=== PATIENT | female | born 1990 | race Caucasian/White ===

== ENCOUNTER 2023-08-18 15:38 | Emergency (ER) | payer SELFPAY ==
--- NOTE | 2023-08-18 15:46 | P.SPORTS_ITS ---
[facility] Past Medical History Medical History (Updated 08/18/23 @ 16:30 by Gladis Diana NP) Down's syndrome PDA (patent ductus arteriosus) hole in ventricle also repaired at 4 months no problems since Family History Family History (Updated 06/27/15 @ 15:02 by DOCTOR UNKNOWN) Father Hypertension Other Diabetes mellitus Social History Social History Smoking status: Never smoker Alcohol intake: never Comments Patient here today for physical sports exam for [facility] [employer]. Visual acuity Right 20/0 Left 20/40 Allergies: Allergies Allergy/AdvReac Type Severity Reaction Status Date / Time No Known Allergies Allergy Verified 08/18/23 15:54 Home Medications: Home Medications Medication Instructions Recorded Confirmed multivit with minerals-iron 18 1 tablet PO DAILY 08/18/23 08/18/23 mg-folic ac 400 mcg-vit K 25 mcg tablet (Adults Multivitamin) Vital Signs: Vital Signs Temperature 36.7 C 08/18/23 15:58 Pulse Rate 67 08/18/23 15:58 Respiratory Rate 20 08/18/23 15:58 Blood Pressure 99/48 L 08/18/23 15:58 Pulse Oximetry 97 08/18/23 15:58 Oxygen Delivery Room Air 08/18/23 15:58 Temperature 36.7 C 08/18/23 15:58 Pulse Rate 67 08/18/23 15:58 Respiratory Rate 20 08/18/23 15:58 Blood Pressure 99/48 L 08/18/23 15:58 Pulse Oximetry 97 08/18/23 15:58 Oxygen Delivery Room Air 08/18/23 15:58 Services Provided Sports Physical Completed: Marilee Huntley was seen today, 08/18/23, for a sports physical for [employer] The paper physical form was completed and scanned into the chart. The original paper physical form was given to the patient for submission to the [employer]. Patient is accompanied by mother who reports child had PDA and hole in ventricle repaired at age 4 months no cardiac problems since. Patient may participate in [facility] [employer] with no restrictions. Discharge Plan Discharge Clinical Impression: Down's syndrome Patient Disposition: Home, Self-Care Condition: Stable Instructions: Antibiotic Form, Normal Exam (ED) Prescriptions: No Action Adults Multivitamin 18 mg iron-400 mcg-25 mcg Tablet 1 tablet PO DAILY Follow-up/Referrals: PHYSICIAN NOT ON STAFF,NONSTAFF [Primary Care Provider] - Time of Disposition: 16:27
[2023-08-18 15:58] VITALS: BP 99/48; PULSE 67; RESP 20; TEMP 36.7; O2SAT 97
== END 2023-08-18 16:28 | disposition home or self-care (01) ==
LOC: EXPTROY 15:42
PROVIDERS: Emergency Provider Registered Nurse
DX: Z02.5 Encounter for examination for participation in sport (principal)
CPT/HCPCS: 99199

== ENCOUNTER 2025-03-20 09:51 | Outpatient (CLI) | payer MEDICARE, SELFPAY ==
--- OUTSIDE RECORDS SUMMARY | 2001-05-03 09:45 | XMS_ITS | Continuity of Care Document ---
Author Organization [facility] Address [address] [place] [address] [address] [place] [address] Phone Care Team Providers Care Metal Trades Instructor Name Role Phone Garces OD, Sagar Unavailable Unavailable Advance Directives Directive Yes / No Effective Date File Name No Information Encounters Encounter Description Practice Location Reason(s) For Visit Diagnoses Date Provider Providers Copied on Encounter [facility], [address] [place] [address] [address], [place], [place], [id number], [place] tel:[phone] [facility] No Information 6-200 1 Garces OD Sagar. [address] , [address], [place], [address], [place]. tel:[phone] Family History Family Member Type Diagnosis Age At Onset No Information Payers Payer name Insurance type Covered constitution party ID Authoriza tion(s) [employer] SOI CI [id number] Social History Type Description Quantity Date Captured Comments Sex Female Smoking Status No Information Chief Complaint And Reason For Visit No Information Reason For Referral Reason For Referral No Information History Of Present Illness Encounter Date Complaint History Of Prese nt Illness No Information Functional Status Date Functional Assessmen t No Information Instructions Date Instruction Additional Infor mation No Information Assessments Type Assessment Date No Information Patient Care Teams Name Effective Dates (start - stop) Status Members No Information
--- NOTE | 2025-04-13 21:34 | WPDSLEEPSTUD ---
Sleep Study Date of Study: 03/20/25 Ordering Provider: Sera Monroe, DAVID Interpreting Physician: Cora Howard MD Sleep Study Type: Split Polysomnogram Weight: 104.326 kg Neck Circumference (inches): 24 [place]: 7 Reason for Sleep Study known obstructive sleep apnea, falls asleep unintentionally Sleep History Marilee Huntley is a 35-year-old woman with unintended episodes of sleep during the day. She frequently awakens from sleep short of breath. She does not mention whether not she has heartburn, belching or coughing at night. She always snores and frequently this is loud enough that others complain. She frequently has breathing problems at night. She occasionally sweats excessively at night. She constantly falls asleep during the day. She occasionally falls asleep involuntarily, constantly falls asleep in the car as a passenger. She does not report loss of muscle tone with strong emotion. She does not feel paralyzed on waking or falling asleep. She does not report vivid dreams upon waking or falling asleep. She rarely has nightmares. She does not report whether or not she can remember her dreams. She occasionally feels sad or depressed. She occasionally feels anxiety. She rarely kicks during the night. She does not report having crawling or aching feelings in her legs. She occasionally feels bothered by pain during the day. She occasionally wakes up with pain in the neck or spine. She reports a weight gain of 20 lb during the last year. She has seasonal allergies and dry eyes. Normal bedtime is 11:00 p.m., falling asleep within 15-30 minutes, waking during the night but she is not certain how often she awakens. She does not report her wake time but she spends 8-10 hours sleeping each night. She maintains the same schedule on weekends. Her sleep questionnaire indicates that she does not take naps during the day. Habits:??Tobacco: never smoker Caffeine: 1-2 sodas per day Alcohol: none Recreational substances: none PMFSH Past Medical History Medical History (Updated 04/13/25 @ 21:53 by Cora Howard MD) Seasonal allergies Hypothyroidism PDA (patent ductus arteriosus) hole in ventricle also repaired at 4 months no problems since Down's syndrome Surgical History Surgical History (Updated 04/13/25 @ 21:43 by Cora Howard MD) History of tonsillectomy Family History Family History (Updated 06/27/15 @ 15:02 by DOCTOR UNKNOWN) Father Hypertension Other Diabetes mellitus Social History Social History Smoking status: Never smoker Alcohol intake: never Medications Home Medications ?Medication ?Instructions ?Recorded ?Confirmed ?Type multivit with minerals-iron 18 1 tablet PO DAILY 08/18/23 08/18/23 History mg-folic ac 400 mcg-vit K 25 mcg tablet (Adults Multivitamin) Sleep Procedure A split night polysomnogram using the TrillTip multi-channel system recorded the standard physiologic parameters including EEG, EOG, submentalis EMG, anterior tibialis EMG, EKG, body position, nasal and oral airflow using nasal pressure sensor and thermistor. Respiratory parameters of chest and abdominal movements were recorded with Respiratory Inductance Plethysmography belts. Oxygen saturation was recorded by pulse oximetry. Video monitoring was also performed. Sleep stages, periodic limb movements, and EEG arousals were scored in 30 second epochs according to the criteria of the AASM Scoring Manual. The Apnea-Hypopnea Index was calculated using CMS guidelines for definition of hypopnea while scoring respiratory events. She did not take a sleep aid at the beginning of the study. The patient's mother spent the night in the sleep lab as well. After the baseline portion the patient met criteria for a titration with an AHI of 180.2 and desaturation to 67%. The patient used a medium ResMed AirTouch F20 fullface mask with heated humidity, initial pressure was CPAP 5 cm, titrated up to CPAP 16 cm. She had significant improvement using CPAP 14 cm spending 21 minutes in bed, all 21 minutes were in non-REM, sleep efficiency was 100% and the residual apnea-hypopnea index was 8.6. The minimum saturation was 88%. The highest pressure during the study was CPAP 16 cm which low gave a residual apnea-hypopnea index of 0 events however sleep efficiency was only 5.4%. She spent 111 minutes at CPAP 16, 1 minute and REM and 5 minutes in non-REM. Sleep Architecture During the diagnostic portion of the study, the total recording time was 335.4 minutes. The total sleep time was 122.5 minutes. Sleep latency was 61.4 minutes. There was no REM on the baseline. Sleep Efficiency was 36.5%. The patient had 24 awakenings for an awakening index of 11.8. Wake after sleep onset time was 151.5 minutes. The patient spent 33.0 minutes, 26.9% of total sleep time in Stage N1. The patient spent 89.5 minutes, 73.1% in Stage N2. The patient spent no time in Stage N3 or in Stage REM sleep. At 04:09:26 AM the patient was placed on PAP treatment and was titrated at pressures ranging from CPAP 5 cm to 16 cm. During the treatment portion of the study, the total recording time was 209.3 minutes. The total sleep time was 64.0 minutes. Sleep latency was 18.0 minutes. REM latency was 82.0 minutes. Sleep Efficiency was 30.6%. Wake after Sleep Onset time was 127.0 minutes. The patient spent 17.5 minutes, 27.3% of total sleep time in Stage N1. The patient spent 40.5 minutes, 63.3% in Stage N2. The patient spent 5.0 minutes, 7.8% in Stage N3. The patient spent 1.0 minutes, 1.6% in Stage REM. Respiratory Analysis During the diagnostic portion of the study, the patient had 282 hypopneas, 86 obstructive apneas, no mixed apneas, and no central apneas for an overall Apnea Hypopnea Index of 180.2 events per hour. The REM Apnea Hypopnea Index was 0 as she had no REM on the baseline. The NREM Apnea Hypopnea Index was 180.2. The patient had a Central Apnea Hypopnea Index of o. There were no Respiratory Effort Related Arousals. The Respiratory Disturbance Index is 180.2 events per hour. There was no evidence of Ryan-Conti Respirations. During the treatment portion of the study, the patient had 28 hypopneas, 2 obstructive apneas, no mixed apneas, and no central apneas for an overall Apnea Hypopnea Index of 28.1 events per hour. The REM Apnea Hypopnea Index was 0, again, she had only one minute of REM. The NREM Apnea Hypopnea Index was 28.6. The patient had a Central Apnea Hypopnea Index of 0. There were no Respiratory Effort Related Arousals. The Respiratory Disturbance Index is 28.1 events per hour. There was no evidence of Ryan-Conti Respirations. Arousals During the diagnostic portion of the study, there were a total of 159 arousals for an arousal index of 77.9. There were 85 respiratory arousals for an index of 41.6. There were no periodic limb movement arousals. There was 1 isolated limb movement arousal for an index of 0.5. There were 74 spontaneous arousals for an index of 36.2. During the treatment portion of the study, there were a total of 49 arousals for an index of 45.9. There were 8 respiratory arousals for an index of 7.5. There were no periodic limb movement arousals. There were no isolated limb movement arousals. There were 41 spontaneous arousals for an index of 38.4. Periodic Limb Movements During the diagnostic portion of the study, the patient had 2 isolated limb movements with an index of 1.0. The patient had no periodic limb movements. The patient had a total of 2 limb movements with a total limb movement index of 1.0. During the treatment portion of the study, the patient had no isolated limb movements.. The patient had no periodic limb movements. Oximetry Data During the diagnostic portion of the study, the patient had an average oxygen saturation of 90% in wake with a minimum oxygen saturation of 70% and a maximum oxygen saturation of 98% The patient had an average oxygen saturation of 81.3% in sleep with a minimum oxygen saturation of 67% and a maximum oxygen saturation of 95%. The patient had 382 oxygen desaturations resulting in an Oxygen Desaturation Index of 187.1. The patient spent 153.9 minutes, 46.7% of total sleep time with an oxygen saturation less than 88%. During the treatment portion of the study, the patient had an average oxygen saturation of 93.1% in wake with a minimum oxygen saturation of 82% and a maximum oxygen saturation of 99%. The patient had an average oxygen saturation of 89.6% in sleep with a minimum oxygen saturation of 82% and a maximum oxygen saturation of 96%. The patient had 32 oxygen desaturations resulting in an Oxygen Desaturation Index of 30.0. The patient spent 22.1 minutes, 10.6% of total sleep time with an oxygen saturation less than 88%. Snoring Profile During the diagnostic portion, snoring was mild. At the optimal pressure, snoring was . eliminated. Cardiac Profile During the diagnostic portion of the study, the EKG showed normal sinus rhythm. The average pulse rate was 81 bpm. The minimum pulse rate was 58 bpm. The maximum pulse rate was 103 bpm. No arrhythmias noted. During the treatment portion of the study, the EKG showed normal sinus rhythm. The average pulse rate was 81 bpm. The minimum pulse rate was 60 bpm. The maximum pulse rate was 101 bpm. No arrhythmias noted. EEG Profile Unremarkable, no evidence of seizures. Assessment and Plan Assessment and Plan (1) Obstructive sleep apnea: Code(s): G47.33 - Obstructive sleep apnea (adult) (pediatric) Status: Acute Assessment and Plan: This split night sleep study on 03/20/2025 shows extremely severe obstructive sleep apnea, the apnea-hypopnea index is 180.2 (p>4%), and the AHI is 184.2 using 3% criteria. The patient desaturated to 67%, had no REM on the baseline, limited REM during the titration. She had significant improvement using CPAP 14 cm with a medium ResMed AirTouch F20 fullface mask. At this pressure the patient spent 21 minutes in bed, all 21 minutes were in non-REM, sleep efficiency was 100% and the residual apnea-hypopnea index was 8.6. The minimum saturation was 88%. The highest pressure during the study was CPAP 16 cm which gave a a low residual apnea-hypopnea index of 0 events however sleep efficiency was only 5.4%. She spent 111 minutes at CPAP 16, 1 minute in REM and 5 minutes in non-REM. I am recommending CPAP 14 cm due to the excellent sleep efficiency. Close follow-up is recommended. If her apnea-hypopnea index is elevated during compliance check, she could have the pressure increased to 15 cm. BMI is 47. Weight management is advised. Clinical data suggests that weight loss of 10% can reduce the severity of respiratory events and snoring and improve AHI by as much as 25%. Data The data obtained during this sleep study is adequate for interpretation. Certification This sleep study has been reviewed by a board certified sleep medicine physician.
== END 2025-03-21 07:53 | disposition home or self-care (01) ==
LOC: ANHCSM 09:59
PROVIDERS: PCP Physician Assistant; Visit Provider Physician Assistant
DX: G47.30 Sleep apnea, unspecified (principal); G47.33 Obstructive sleep apnea (adult) (pediatric)
CPT/HCPCS: 95811